=== PATIENT | male | born 1960 | race Caucasian/White ===

== ENCOUNTER 2017-04-07 12:43 | Day surgery (SDC) | payer OTHER ==
[2017-04-06 10:13] VITALS: BMI 31.9
[2017-04-07] MEDS ORDERED: DEXTROSE 50%-WATER - 25 GM/50 ML VIAL IVPUSH ONE (13:46)
[2017-04-07] MEDS ORDERED: DEXTROSE 50%-WATER 50 ML DISP.SYRIN ONE (13:53)
[2017-04-07] MEDS ORDERED: MIDAZOLAM HCL 2 MG/2 ML SINGLE DOSE VIAL ONE (15:14)
[2017-04-07] MEDS ORDERED: PROPOFOL 20 ML ONE ×2 (15:15→15:17)
[2017-04-07] MEDS ORDERED: LIDOCAINE HCL 0.5% EPINEPHRINE 1:200,000 50 ML VIAL IJ ONE ×2 (15:23→15:55)
[2017-04-07] MEDS ORDERED: BUPIVACAINE HCL/PF 0.5% (5MG/ML) 10 ML VIAL ONE ×2 (15:23→15:24)
[2017-04-07] MEDS ORDERED: CLINDAMYCIN 600 MG PREMIX BAG IVPB ONE (15:34)
[2017-04-07] MEDS ORDERED: CLINDAMYCIN PHOSPHATE 600 MG/4 ML VIAL ONE ×2 (15:37→15:39)
[2017-04-07] MEDS ORDERED: BUPIVACAINE HCL/PF 0.5% (5MG/ML) 10 ML VIAL IJ ONE (15:55)
--- NOTE | 2017-04-07 17:44 | HP ---
Admitting History and Physical - Primary Care Physician PCP: Jeffrey Anguiano (Physician Office Secretary) - Admission Chief Complaint: Severe pain on ambulation inferior to right 1st and 5th metatarsals History of Present Illness: Patient is hammered hallux, conrtracted extensor tendon and prominence on weight bearing of the right 1st and 5th metatarsals. Patient has requested surgical correction of bone prominence to relieve pressure and pain. - Smoking History Smoking history: Current every day smoker Have you smoked in the past 12 months: Yes Aproximately how many cigarettes per day: 30 - Alcohol/Substance Use Hx Alcohol Use: No Home Medications - Allergies Allergies/Adverse Reactions: Allergies Allergy/AdvReac Type Severity Reaction Status Date / Time Penicillins Allergy "THROAT Verified 04/06/17 10:14 SWELLING" - Home Medications Home Medications: Ambulatory Orders Aspirin [Aspirin EC] 81 mg PO DAILY 04/06/17 Atorvastatin Ca [Lipitor] 40 mg PO HS 04/06/17 Canagliflozin [Invokana] 40 mg PO DAILY 04/06/17 Insulin Glargine,Hum.rec.anlog [Lantus (nf)] 25 units SQ HS 04/06/17 Insulin Glargine,Hum.rec.anlog [Lantus (nf)] 30 units SQ DAILY 04/06/17 Metformin HCl [Metformin HCl ER] 1,000 mg PO BID 04/06/17 Quetiapine Fumarate [Seroquel] 100 mg PO DAILY 04/06/17 Sertraline HCl [Zoloft -] 25 mg PO DAILY 04/06/17 Zolpidem Tartrate [Ambien] 10 mg PO DAILY 04/06/17 Physical Examination Vital Signs: Vital Signs Temperature 98.4 F 04/07/17 16:50 Pulse Rate 63 04/07/17 17:15 Respiratory Rate 18 04/07/17 17:15 Blood Pressure 100/64 04/07/17 17:15 O2 Sat by Pulse Oximetry (%) 96 04/07/17 17:15 Extremities: Yes: Other (right hallux is severly hammered with shortened externsor tendon and plantar prominent 1st and 5th metatarsals with painful hyperkeratotic skin lesions below) Assessment/Plan Assessment Intractable plantar keratosis inferior to the right 1st and 5th metatarsal bones is 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 Plan Extensor tendon lengthening right first metatarsal phalangeal joint to lessen the deforming force on the first mp, Tibial sesamoid resection to remove pressure point from plantar skin 5th metatarsal head resection to remove pressure point from planta skin
[2017-04-07 18:36] VITALS: TEMP 97.9
[2017-04-07 18:43] VITALS: BP 104/65; PULSE 71
--- NOTE | 2017-04-08 11:02 | OP ---
DATE OF OPERATION: 04/07/2017 SURGEON: Jeffrey Anguiano DPM PREOPERATIVE DIAGNOSES: 1. Right hallux hammertoe. 2. Right extensor hallucis longus contracture. 3. Prominent painful right tibial sesamoid. 4. Metatarsalgia, right fifth metatarsal. POSTOPERATIVE DIAGNOSES: 1. Right hallux hammertoe. 2. Right extensor hallucis longus contracture. 3. Prominent painful right tibial sesamoid. 4. Metatarsalgia, right fifth metatarsal. PROCEDURES: 1. Right extensor hallucis longus tendon lengthening. 2. Right tibial sesamoidectomy. 3. Right fifth metatarsal head resection. DESCRIPTION OF PROCEDURE: Under fractional anesthesia and a surgical scrub with Betadine scrub and solution x2, the patient was draped using sterile technique. After 3 minutes of right limb elevation, a right ankle tourniquet was inflated to 250 mmHg pressure for 45 minutes. Inspection of the right foot showed a severe cavus-type foot arrangement with a significant extensor hallucis longus contracture and right hallux hammertoe with prominent hyperkeratotic lesions inferior to the right tibial sesamoid and the right fifth metatarsal. Using a number 15 surgical blade, a linear longitudinal incision was made on the dorsal medial aspect of the right foot over the extensor hallucis longus tendon. The incision was deepened through fascia and retracted. Using sharp and blunt dissection, the extensor hallucis longus tendon was identified. The medial and lateral extensor arenas apparatus was sectioned, and then, a Z-plasty lengthening procedure was performed on the hallucis longus tendon at the first metatarsophalangeal joint. The tendon was lengthening approximately 4 cm and sutured with 3-0 Vicryl suture. The superficial tissues were then reapproximated and closed with 3-0 Vicryl suture, and then, skin on the dorsum of the right foot was closed with 4-0 nylon simple interrupted sutures. Following the reduction of the extensor contracture, attention was then directed to the plantar medial aspect of the right foot at the first metatarsophalangeal joint. Using a number 15 blade, a longitudinal incision was made on the plantar medial aspect of the first metatarsophalangeal joint. The incision was deepened through fascia and adipose and retracted, exposing the joint capsule of the first metatarsophalangeal joint. The tibial sesamoid was palpated and identified, and then, a longitudinal capsulotomy was performed on the plantar medial aspect of the joint capsule. The joint capsule was incised and reflected, exposing the tibial sesamoid, that was then sharply dissected from the joint capsule. The wound was irrigated with sterile saline, and then, the joint capsule was repaired using 3-0 Vicryl suture. Subcutaneous tissues were repaired in similar fashion, and then, skin was repaired using the 4-0 nylon sutures. It should be noted that a medial capsulorrhaphy was performed during the capsular repair. Attention was then directed to the lateral aspect of the right foot where the fifth metatarsal head was prominent, and a plantar hyperkeratosis was present. Using a 15 surgical blade, a linear longitudinal incision was made at the fifth metatarsophalangeal joint on the lateral surface. The incision was deepened through fascia and retracted, exposing the joint capsule of the fifth metatarsophalangeal joint. This was longitudinally incised and reflected, exposing the fifth metatarsal head. Using a sagittal saw, the majority portion of the fifth metatarsal head was resected, maintaining the length of the bone and removing the plantar prominence of the fifth metatarsal head. The bone was rasped smooth, and then, the wound was irrigated with sterile saline. Then, the joint capsule was reapproximated and closed with 4-0 Vicryl suture, and then, superficial tissues were similar closed. Then, skin was closed with 4-0 nylon simple interrupted sutures. No excessive bleeding was noted after deflation of the tourniquet. So, a dry sterile dressing was applied to the right foot. The patient tolerated the surgical procedure well and left the operating room stable, alert, awake, and in no pain. YOLANDA CASTRO/[id number]
--- NOTE | 2017-04-11 14:18 | PATH ---
Surgical Pathology Report Patient Name: [facility]. Rec. #: [id number] /Age/Gender: 1960 (Age: 57) / M Account: [id number] Location: [facility] SURGICAL Taken: 04/07/2017 Received: 04/10/2017 Reported: 04/11/2017 Physicians: Jeffrey Anguiano M.D. Specimen(s) Received A: RIGHT TIBIAL SESAMOID B: RIGHT 5TH METATARSAL HEAD Clinical History Right bunion with hallux valgus, right fifth metatarsal Final Diagnosis A. BONE, RIGHT TIBIAL SESAMOID, BUNIONECTOMY: BONE AND CARTILAGE WITH DEGENERATIVE CHANGES. B. 5TH METATARSAL HEAD, RIGHT, RESECTION: BONE AND CARTILAGE WITH DEGENERATIVE CHANGES. Electronically Signed Clyde Hogan M.D. Gross Description A. Received in formalin labeled "right tibial sesamoid" is a 2.1 x 1.3 x 0.5 cm wright, irregular portion of bone. [employer] sections are submitted in one cassette, following decalcification. B. Received in formalin labeled "right fifth metatarsal head" is a 1.8 x 1.5 x 0.7 cm wright, irregular portion of bone. Health And Social Care Teacher sections are submitted in one cassette, following decalcification. 04/10/201704/10/2017
== END 2017-04-07 19:30 | disposition home or self-care (01) ==
LOC: JASU-SURG 12:43
PROVIDERS: ATTEND Podiatrist Foot Surgery
PROC: 0L8V0ZZ Division of Right Foot Tendon, Open Approach (ICD-10-PCS; 2017-04-07)
PROC: 0QBN0ZZ Excision of Right Metatarsal, Open Approach (ICD-10-PCS; principal; 2017-04-07 14:30)
DX: M20.41 Other hammer toe(s) (acquired), right foot (principal); M62.471 Contracture of muscle, right ankle and foot; M77.41 Metatarsalgia, right foot; M20.11 Hallux valgus (acquired), right foot; M21.611 Bunion of right foot
CPT/HCPCS: 73630-TC-RT; 88304-TC; 88311-TC; 94760